=== PATIENT | female | born 1990 | race Caucasian/White ===

== ENCOUNTER 2017-01-21 14:22 | Emergency (ER) | payer BC ==
--- NOTE | ~2017-01-21 | CR127 ---
[facility] A Service of [facility] RADIOLOGY TEXT RESULTS PATIENT: KIMBERLEY GABRIEL LOCATION: SED : [birth year] UNIT #: [id number] AGE: [address]: RAO MCKEON SEX: F ORDER DR: [id number] [place] [id number] E MR#: [id number] Acc #: [id number] NAME: KIMBERLEY GABRIEL. : 1990 SEX: F STUDY DATE/TIME: 01/21/2017 15:04 UNIT: SED ROOM: STUDY DESCRIPTION: CR Foot Complete Min 3 View Rt Attending Physician: Rao Mckeon Aprn Ordering Physician: Rao Mckeon Aprn Primary Care Physician: Jessica Turner Aprn MEDICAL IMAGING REPORT This report is preliminary unless electronic signature is present. EXAM 3 views right foot. DATE 01/21/2017 HISTORY Pain on the bottom of the foot for 1 week. No known injury. COMPARISON Right foot radiographs 10/21/2011 FINDINGS The tarsal, metatarsal, and phalangeal elements are all anatomically normal in position and alignment. There are no articular defects. No fractures or radiopaque foreign bodies in the soft tissues are apparent. IMPRESSION Normal foot. Dictated by... Deanna Prajapati M.D. THIS IS AN ELECTRONICALLY VERIFIED REPORT Deanna Prajapati M.D. at 01/22/2017 2:[address] [facility]/to TD: 01/21/2017 21:47 JOB #: [id number] MEDICAL IMAGING REPORT [facility] A Service of [facility] RADIOLOGY TEXT RESULTS PATIENT: KIMBERLEY GABRIEL LOCATION: SED : [birth year] UNIT #: [id number] AGE: [address]: RAO MCKEON SEX: F ORDER DR: Page 1 of 1
[~2017-01-21 14:22] MED LIST: BACTRIM DS TABL1 TA1 PO; CLEOCIN150 MG PO; COLACE PO; DICLOFENAC PO; FLAGYL PO; IBUPROFEN PO; IBUPROFEN800 MG PO; KEFLEX PO; MOTRIN600 M1 PO; NAPROXEN PO; NO MEDICATIONS; NORCO 5/325 TAB1 TAB PO; ORTHO TRI-7 DAYS X PO; PERCOCET5/325 PO; TYLENOL #3 PO; ULTRAM PO; VOLTAREN75 MG PO; ZANTAC PO; ZITHROMAX PO
== END 2017-01-21 16:41 | disposition home or self-care (01) ==
LOC: SED 14:22
DX: M72.2 Plantar fascial fibromatosis (principal); Z88.5 Allergy status to narcotic agent
CPT/HCPCS: 29515; 73630; 99283

== ENCOUNTER → 2017-02-26 | Outpatient (CLI) | payer BC ==
--- NOTE | ~2017-02-26 | US98 ---
[facility] A Service of [facility] RADIOLOGY TEXT RESULTS PATIENT: KIMBERLEY GABRIEL LOCATION: [facility] : [birth year] UNIT #: [id number] AGE: [address]: Tommie Otero MD SEX: F ORDER DR: [id number] [facility] [address] [place], [place] [address] [id number] O MR#: [id number] Acc #: [id number] NAME: KIMBERLEY GABRIEL. : 1990 SEX: F STUDY DATE/TIME: 02/26/2017 13:39 UNIT: US ROOM: STUDY DESCRIPTION: US Pelvic Non-OB Complete Attending Physician: Tommie Otero M.D. Referring Physician: Tommie Otero M.D. Ordering Physician: Tommie Otero M.D. Primary Care Physician: Jessica Turner Aprn MEDICAL IMAGING REPORT This report is preliminary unless electronic signature is present EXAM Transabdominal and transvaginal pelvic ultrasound, 02/26/2017 HISTORY Abnormal vaginal bleeding beginning 02/19/2017 persisting with right side pelvic pain for 10 years. FINDINGS Transabdominal and transvaginal pelvic ultrasound was performed. Endovaginal ultrasound was performed for attempted better visualization of the adnexal structures. The bladder is normal in appearance. The uterus measures 5 cm transverse by 8.5 cm craniocaudal by 4.4 cm AP. Endometrial stripe measures 7 mm. The right ovary measured 2.8 cm x 1.8 cm x 2.4 cm, while the left ovary measures 2.7 cm x 1.6 cm x 2.7 cm. Small follicles were seen on both ovaries. There is no adnexal mass and there is no free fluid in the pelvis. IMPRESSION Negative transabdominal and transvaginal pelvic ultrasound. Dictated by... Malcolm Presley M.D. THIS IS AN ELECTRONICALLY VERIFIED REPORT Malcolm Presley M.D. at 02/27/2017 2:18 PM [facility]/raza TD: 02/27/2017 04:16 JOB #: [id number] MEDICAL IMAGING REPORT Page 1 of 1 COPY
== END | disposition home or self-care (01) ==
LOC: CGUS 13:18
DX: N92.0 Excessive and frequent menstruation with regular cycle (principal)
CPT/HCPCS: 76830; 76856

== ENCOUNTER 2017-03-21 11:58 | Emergency (ER) | payer BC ==
[~2017-03-21] VITALS: Ht 152.4 cm; Wt 91.6 kg
--- NOTE | ~2017-03-21 | ER ---
Unit #: [id number] #: [id number] Patient: KIMBERLEY GABRIEL [id number] [address] [place], [place] [address] [id number] E MR#: [id number] NAME: KIMBERLEY GABRIEL. ROOM: Sex: F Age: 26 : 1990 Service Date: 03/21/2017 Attending Physician: Vincenzo Freeman M.D. Primary Care Physician: Jessica Turner Aprn EMERGENCY DEPT PHYSICIAN NOTE Please see the written T-sheet for the full details of the encounter. Ms. Gabriel is a 26-year-old woman who presented to the emergency department today with the chief complaint of headache and nausea and vomiting. She stated that she has been having chronic headaches and essentially daily episodes of nausea and vomiting in the morning for several years. She reports that she has seen her primary care provider as well as medical reception specialist for a variety of symptoms associated with these headaches and has yet established a definitive diagnosis or reason for her constellation of symptoms. She goes on to say that sometimes these symptoms are associated with episodes of her "seizing up" where she falls to the ground and has muscle tightening and what sound like spasms that will gradually edith on their own. The patient additionally relays that she has had an MRI of her brain, images of which she attempted to show me that reportedly was negative and shows no evidence of any intracranial abnormality. Today, the patient was having a headache typical of her previous headache. However, it seemed more severe than it had in the past. The patient went to see her OBGYN today for a normal routine exam and during the review of systems, detailed the history of these episodes and her concern that they were still ongoing daily. At hearing this, the OBGYN sent the patient to their primary care doctor's office for further evaluation. I spoke with the nurse practitioner at the office who stated that she was concerned that the patient's symptoms had become more severe and that she possibly needed a repeat head CT to rule out any new or additional findings that could explain why she suddenly had increase in severity of her headaches and nausea. She additionally relayed that she does have an appointment with a neurologist but is unable to get in to see them until May. She specifically did not expect that her emergency department visit would necessarily require neurologic consultation. She simply wanted to rule out any new or acute findings accounting for the patient's presentation today. I conducted a complete history and physical on the patient and again confirmed that these symptoms have been present for many years to some degree. There were no focal neurologic deficits that could be appreciated on exam. No evidence of photophobia or meningismus or any other concerning abnormality present. I told the patient that I would be happy to re-CT her in an effort to address any possible change or acute abnormality as well as administer medicines to get better control of her headache but, I explained to them that, again, neurologic consultation would be unlikely to aid in their diagnosis or be of much value acutely as this problem had been going on for many years and the likely result of Unit #: [id number] #: [id number] Patient: KIMBERLEY GABRIEL that consultation would be a recommendation that the patient follow up with an outpatient neurologist which is already scheduled. At hearing this, the patient and her mother became very upset demanding that I speak with a neurologist and that that was the very reason that they were sent in. I again explained the position that I was in reassuring them that I would address their chief complaint today but that I would be happy to speak to our staff neurologist. However, again, these chronic issues would be unlikely to be resolved today and the patient would still, ultimately, need to keep her scheduled neurology followup. After leaving the room and attempting to enter orders for the patient to treat her headache, she was heard loudly screaming obscenities and then shortly thereafter observed fully clothed leaving the emergency department without disclosing her intent to do so or staying to be counseled about her decision to leave without the medical treatment ordered. Dictated by... Patrick Branch/sol TD: 03/22/2017 05:59 JOB #: [id number] EMERGENCY DEPT PHYSICIAN NOTE Page 1 of 1 X Vincenzo Freeman MD EMERGENCY DEPARTMENT REPORT
[2017-03-21 13:14] LABS: BASOPHIL# 0.1 X10e3 (0-0.3); BASOPHIL% 0.8 % (0-2.5); EOSINOPHIL# 0.1 X10e3 (0-0.7); EOSINOPHIL% 0.7 % (0.0-7.0); HEMATOCRIT 41.5 % (35.0-45.0); HEMOGLOBIN 13.8 gm/dL (12.0-16.0); LYMPHOCYTE% 20.6 % (17.0-45.0); MEAN CELL VOLUME 91.9 FL (83-96); MEAN CORPUSCULAR HEMOGLOBIN 30.6 PG (28-34); MEAN CORPUSCULAR HGB CONC 33.3 g/dL (30-36); MONOCYTE# 0.6 X10e3 (0-1.0); MONOCYTE% 6.1 % (3.0-12.0); NEUTROPHIL# 7.1 X10e3 (1.5-7.1); NEUTROPHIL% 71.8 % (40-75); PLATELET COUNT 189 X10e3 (140-420); RED BLOOD COUNT 4.52 X10e (3.90-5.30); RED CELL DISTRIBUTION WIDTH 13.4 % (11.0-15.5); WHITE BLOOD COUNT 9.9 X10e3 (4.0-10.5)
[2017-03-21 13:15] LABS: DIFF IND NO
[2017-03-21 13:47] LABS: URINE SOURCE CLEAN CATCH
[2017-03-21 13:51] LABS: ALBUMIN SERUM 4.6 g/dL (3.5-5.0); BILIRUBIN, DIRECT 0.1 mg/dL (0.0-0.2); BILIRUBIN,INDIRECT 0.5 mg/dL (0.0-0.9); BILIRUBIN,TOTAL 0.6 mg/dL (0.2-2.0); CALCIUM SERUM 9.2 mg/dL (8.4-10.2); CREATININE SERUM 0.6 mg/dL (0.6-1.4); POTASSIUM 3.7 mmol/L (3.5-5.1); PROTEIN TOTAL SERUM 7.8 g/dL (6.0-8.3)
[2017-03-21 14:02] LABS: URINE APPEARANCE CLEAR; URINE BILIRUBIN NEG (NEG); URINE BLOOD NEG (NEG); URINE COLOR YELLOW; URINE GLUCOSE NEG (NEG); URINE KETONE 1+ (NEG); URINE LEUKOCYTE ESTERASE NEG (NEG); URINE NITRATE NEG (NEG); URINE PH 5.5 (5-8); URINE PROTEIN NEG (NEG); URINE SPECIFIC GRAVITY 1.026 (1.003-1.035); URINE UROBILINOGEN 0.2 MG/DL (NEG)
[2017-03-21 14:20] LABS: CULTURE INDICATED? NO
== END 2017-03-21 15:35 | disposition left against medical advice (07) ==
LOC: CED 11:58
DX: R51 Headache (principal); Z90.49 Acquired absence of other specified parts of digestive tract; Z98.890 Other specified postprocedural states
CPT/HCPCS: 80048; 80076; 81003; 83690; 84703; 85025; 99284